=== PATIENT | female | born 1990 | race Caucasian/White ===

== ENCOUNTER 2016-12-06 13:04 | Emergency (ER) | payer SELFPAY ==
[2016-12-06 14:08] VITALS: BP 113/71
[2016-12-06] MEDS ORDERED: Acetaminophen TAB* 325 MG PO ONE (14:14)
[2016-12-06] MEDS ORDERED: Ondansetron INJ* 2 MG/ML VIAL IV ONE (14:15)
--- NOTE | 2016-12-06 16:55 | ED ---
Substance Abuse/Use - HPI Summary HPI Summary: Patient is a [facility] patient, a heroin drug user and last used suboxone 2 days ago arrives to ED with CC of feeling nauseous, chills, sweats and generalized malaise x2 days. Last used heroin 1 week ago. She states [facility] is unable to get her the suboxone she needs and she feels that she is going through withdraws. She also states she has been sick recently with URI and could be from that. She was seen at [facility] and they sent her here for workup. - History Of Current Complaint Chief Complaint: EDDetoxRequest Stated Complaint: WITHDRAWAL Time Seen by Provider: 12/06/16 14:02 Hx Obtained From: Patient Hx Last Menstrual Period: 2 months ago,very irregular per pt. ?: No Onset/Duration of Drug/ETOH Abuse: Days - 7 days ago Ingestion History: Type/Name Of Drug - heroin Overdose Characteristics: IV - heroin Timing Of Abuse: Daily, Recent Cessation For A Period Of - 1 week Severity Initially: Moderate Severity Currently: Moderate Aggravating Factor(s): Nothing Alleviating Factor(s): Medication - suboxone Associated Signs And Symptoms: Nausea, Vomiting, Cough Related Hx: Drug/Alcohol Last Used @ - 1 week ago, Possible Multi Drug Ingestion - Risk Factor(s) Completed Suicide Risk Factors: White [place] - Allergies/Home Medications Allergies/Adverse Reactions: Allergies Allergy/AdvReac Type Severity Reaction Status Date / Time Erythromycin Allergy Unknown Verified 12/06/16 13:10 Reaction Details PMH/Surg Hx/FS Hx/Imm Hx Previously Healthy: Yes Endocrine/Hematology History: Denies: Hx Diabetes, Hx Thyroid Disease Cardiovascular History: Denies: Hx Hypertension Respiratory History: Denies: Hx Asthma, Hx Chronic Obstructive Pulmonary Disease (COPD) GI History: Denies: Hx Ulcer History: Denies: Hx Renal Disease - Cancer History Cancer Type, Location and Year: skin cancer - 2007 right buttock - Surgical History Surgery Procedure, Year, and Place: 2007 - lymph nodes removed from right groin. 2007 - skin cancer removed from right buttock - Immunization History Date of Tetanus Vaccine: 10/12 Date of Influenza Vaccine: None Infectious Disease History: No Infectious Disease History: Reports: Hx of Known/Suspected MRSA, Hx Shingles - 2007 Denies: Hx Clostridium Difficile, Hx Hepatitis, Hx Human Immunodeficiency Virus (HIV), Hx Tuberculosis, Hx Known/Suspected VRE, Hx Known/Suspected VRSA, History Other Infectious Disease, Traveled Outside the [place] in Last 30 Days - Family History Known Family History: Negative: Cardiac Disease, Hypertension, Diabetes - Social History Lives: Alone Alcohol Use: None Hx Substance Use: Yes Substance Use Type: Reports: Heroin, Marijuana Substance Use Comment - Amount & Last Used: denies Hx Tobacco Use: Yes Smoking Status (MU): Heavy Every Day Tobacco Smoker Type: Cigarettes Amount Used/How Often: 1/2 PPD Length of Time of Smoking/Using Tobacco: 6 years Review of Systems Constitutional: Negative Positive: Sore Throat, Nasal Discharge Cardiovascular: Negative Positive: Cough Positive: Vomiting, Nausea Genitourinary: Negative Positive: no symptoms reported, see HPI Skin: Negative Neurological: Negative Positive: Anxious All Other Systems Reviewed And Are Negative: Yes Physical Exam Triage Information Reviewed: Yes Vital Signs On Initial Exam: Initial Vitals Temp Pulse Resp BP Pulse Ox 99.3 F 86 16 106/59 99 12/06/16 13:10 12/06/16 13:10 12/06/16 13:10 12/06/16 13:10 12/06/16 13:10 Vital Signs Reviewed: Yes Appearance: Positive: Well-Appearing, No Pain Distress, Well-Nourished Skin: Positive: Warm Eyes: Positive: EOMI, PIERCE, Conjunctiva Clear ENT: Positive: Pharynx normal, TMs normal Neck: Positive: Supple, Nontender Cardiovascular: Positive: Normal, RRR Neurological: Positive: Normal, Sensory/Motor Intact Psychiatric: Positive: Normal - [place] Coma Scale Coma Scale Total: 15 Diagnostics - Vital Signs Vital Signs Temp Pulse Resp BP Pulse Ox 12/06/16 14:03 98.9 F 76 18 113/71 99 12/06/16 13:37 98.2 F 87 16 121/71 99 12/06/16 13:10 99.3 F 86 16 106/59 99 - Laboratory Lab Statement: Any lab studies that have been ordered have been reviewed, and results considered in the medical decision making process. Course/Dx - Course Course Of Treatment: Patient left AMA after provider performed physical exam. No labs taken or medication given. - Diagnoses Differential Diagnosis/HQI/PQRI: Positive: Anxiety, Drug Abuse, Drug Withdrawal Provider Diagnoses: Nausea Discharge - Discharge Plan Condition: Stable Disposition: HOME Referrals: No Primary Care Phys,NOPCP [Primary Care Provider] -
== END 2016-12-06 15:00 | disposition home or self-care (01) ==
LOC: ED 13:04
DX: R11.0 Nausea (principal); F17.210 Nicotine dependence, cigarettes, uncomplicated; Z85.828 Personal history of other malignant neoplasm of skin
CPT/HCPCS: 99282; A9270-GY; J2405

== ENCOUNTER 2017-01-16 15:11 | Emergency (ER) | payer MEDICAID, OTHER ==
[2017-01-16 15:25] VITALS: BP 147/88
== END 2017-01-16 17:10 | disposition left against medical advice (07) ==
LOC: ED 15:11
DX: R55 Syncope and collapse (principal); Z53.21 Procedure and treatment not carried out due to patient leaving prior to being seen by health care provider

== ENCOUNTER 2017-03-17 12:49 | Emergency (ER) | payer MEDICAID, OTHER ==
[2017-03-17] MEDS ORDERED: Ibuprofen TAB* 600 MG PO ONE (13:44)
[2017-03-17] MEDS ORDERED: Cephalexin CAP* 500 MG PO ONE (13:44)
[2017-03-17] MEDS ORDERED: Lidocaine 2.5%/Prilocain 2.5%* 5 GM TUBE TOPICAL ONE (13:44)
[2017-03-17] MEDS ORDERED: Sulfamethox/Trimethoprim DS 800/160* TAB PO ONE (13:44)
[2017-03-17 17:48] VITALS: BP 122/70
--- NOTE | 2017-03-17 18:11 | PN ---
Progress Note - Progress Note Note: I&D performed by Nenita SRIVASTAVA of left antecubital fossa Use local 1% lidocaine and anesthetized area lengthen opening already present at center of antecubital fossa and placed another laceration in center of abscess that did not track from other opening with minimal amount of draining present Packed with plain packing Placed an john wrap around area Told to return to ED or UC to have packing removed in 2 days
--- NOTE | 2017-03-17 23:11 | ED ---
Patsy Andrews Alok, scribed for Demarcus Gage MD on 03/17/17 at 1406 . Skin Complaint - HPI Summary HPI Summary: Went to room at 1350 - No pt is room, greeted mother. Revisited patient at 1645 - Pt presents to the ED with left arm pain at the antecubital described as stabbing, burning pain with purulent and blood drainage. Pt states that she injected her arm with heroine 9 days ago and her arm has been hurting for the last 8 days. Pt also notes a subjective fever and diaphoresis. Pt is actively trying to get into a rehabilitation center in [place] and has been to [facility] before. - History of Current Complaint Chief Complaint: EDGeneral Stated Complaint: ABSESS LT ARM Hx Obtained From: Patient Hx Last Menstrual Period: 2 months ago,very irregular per pt. Onset/Duration: Started Days Ago, Still Present Skin Exposure Onset/Duration: Days Ago Timing: Constant Onset Severity: Moderate Current Severity: Moderate Pain Intensity: 6 Pain Scale Used: 0-10 Numeric Skin Location: Arm Character: Pruritus, Pain Aggravating Symptom(s): Other: - Heroine injection Alleviating Symptom(s): Nothing Associated Signs & Symptoms: Diaphoresis, Fever - Subjective, Drainage Related History: Other: - Pain at heroine injection site. - Allergy/Home Medications Allergies/Adverse Reactions: Allergies Allergy/AdvReac Type Severity Reaction Status Date / Time Erythromycin Allergy Unknown Verified 12/06/16 13:10 Reaction Details PMH/Surg Hx/FS Hx/Imm Hx Endocrine/Hematology History: Denies: Hx Diabetes, Hx Thyroid Disease Cardiovascular History: Denies: Hx Hypertension Respiratory History: Denies: Hx Asthma, Hx Chronic Obstructive Pulmonary Disease (COPD) GI History: Denies: Hx Ulcer History: Denies: Hx Renal Disease - Cancer History Cancer Type, Location and Year: skin cancer - 2007 right buttock - Surgical History Surgery Procedure, Year, and Place: 2007 - lymph nodes removed from right groin. 2007 - skin cancer removed from right buttock - Immunization History Date of Tetanus Vaccine: 10/12 Date of Influenza Vaccine: None Infectious Disease History: No Infectious Disease History: Reports: Hx of Known/Suspected MRSA, Hx Shingles - 2007 Denies: Hx Clostridium Difficile, Hx Hepatitis, Hx Human Immunodeficiency Virus (HIV), Hx Tuberculosis, Hx Known/Suspected VRE, Hx Known/Suspected VRSA, History Other Infectious Disease, Traveled Outside the [place] in Last 30 Days - Family History Known Family History: Negative: Cardiac Disease, Hypertension, Diabetes - Social History Occupation: Unemployed Lives: With Family Alcohol Use: None Hx Substance Use: Yes Substance Use Type: Reports: Heroin, Marijuana Substance Use Comment - Amount & Last Used: denies Hx Tobacco Use: Yes Smoking Status (MU): Heavy Every Day Tobacco Smoker Type: Cigarettes Amount Used/How Often: 1/2 PPD Length of Time of Smoking/Using Tobacco: 6 years Review of Systems Positive: Fever - subjective, Skin Diaphoresis. Negative: Chills Negative: Erythema Negative: Sore Throat Negative: Chest Pain Negative: Shortness Of Breath, Cough Negative: Abdominal Pain, Vomiting, Nausea Negative: dysuria, hematuria Negative: Myalgia, Edema Positive: Other - pain with purulent drainage left anticubital Neurological: Other - Negative: Dizziness All Other Systems Reviewed And Are Negative: Yes Physical Exam - Summary Physical Exam Summary: Constitutional: Well-developed, Well-nourished, Alert. (-) Distressed Skin: 15 cm left antecubital fossa to mid-humerus puncture would with surrounding induration, no lymphadenopathy. Small induration lump with no erythema on dorsum of hand with no discoloration at injection site HENT: Normocephalic; Atraumatic Eyes: Conjunctiva normal Neck: Musculoskeletal ROM normal neck. (-) JVD, (-) Stridor, (-) Tracheal deviation Cardio: Rhythm regular, rate normal, Heart sounds normal; Intact distal pulses; The pedal pulses are 2+ and symmetric. Radial pulses are 2+ and symmetric. (-) Murmur Pulmonary/Chest wall: Effort normal. (-) Respiratory distress, (-) Wheezes, (-) Rales Abd: Soft, (-) Tenderness, (-) Distension, (-) Guarding, (-) Rebound Musculoskeletal: (-) Edema Lymph: (-) Cervical adenopathy Neuro: Alert, Oriented x3 Psych: Mood and affect Normal Triage Information Reviewed: Yes Vital Signs On Initial Exam: Initial Vitals Temp Pulse Resp BP Pulse Ox 97.1 F 78 16 115/55 98 03/17/17 13:18 03/17/17 13:18 03/17/17 13:18 03/17/17 13:18 03/17/17 13:18 Vital Signs Reviewed: Yes - [place] Coma Scale Coma Scale Total: 15 Diagnostics - Vital Signs Vital Signs Temp Pulse Resp BP Pulse Ox 03/17/17 13:30 66 99 03/17/17 13:22 97.8 F 74 20 115/55 98 03/17/17 13:18 97.1 F 78 16 115/55 98 - Laboratory Lab Statement: Any lab studies that have been ordered have been reviewed, and results considered in the medical decision making process. Course/Dx - Diagnoses Provider Diagnoses: Heroin abuse, Arm abscess, Left arm cellulitis Discharge - Discharge Plan Condition: Stable Disposition: HOME Prescriptions: Cephalexin CAP* [Keflex CAP*] 500 mg PO QID #40 cap Ibuprofen TAB* [Motrin TAB* 600 MG] 600 mg PO Q6H PRN #40 tab PRN Reason: Pain - Moderate To Severe Sulfamethox/Trimethoprim DS* [Bactrim DS 800/160 TAB*] 1 tab PO BID #20 tab Patient Education Materials: Abscess (ED), Cellulitis (ED) Forms: *Gen. Provider Communication Referrals: No Primary Care Phys,NOPCP [Primary Care Provider] - [facility] [Outside] The documentation as recorded by the Patsy quinones Alok accurately reflects the service I personally performed and the decisions made by , Demarcus Gage MD.
== END 2017-03-17 17:49 | disposition home or self-care (01) ==
LOC: ED 12:49
DX: L02.414 Cutaneous abscess of left upper limb (principal); L03.114 Cellulitis of left upper limb; F11.10 Opioid abuse, uncomplicated; R50.9 Fever, unspecified; F17.210 Nicotine dependence, cigarettes, uncomplicated
CPT/HCPCS: 99282; A9270-GY

== ENCOUNTER 2017-03-19 09:02 | Emergency (ER) | payer OTHER ==
[2017-03-19 09:09] VITALS: BP 106/66
--- NOTE | 2017-03-19 12:55 | UC ---
Patsy Andrews Alok, scribed for Isabella Matos DO on 03/19/17 at 0918 . HPI Wound/Suture Re-check - HPI Summary HPI Summary: 26F presents to the [facility] with two abscesses at the left antecubital fossa. Pt states that she was seen at the ED 2 days ago and had one of the abscesses drained while the other had difficulty draining. Pt was discharged with rx for ibuprofen, cephalexin, and sulfamethox. Pt states that her abscess started 10 days ago caused by a heroin injection 11 days ago. Pt notes pruritus and pain at abscess. Pt notes a subjective fever. Pt denies chills, diaphoresis, nausea, ear pain, sore throat, cough, or abd pain. PMHx includes h/o MRSA and Skin CA. Pt smokes tobacco. Pt can not move the elbow joint at all. - History Of Current Complaint Chief Complaint: UCWounds Stated Complaint: SOFT TISSUE COMPLAINT Time Seen by Provider: 03/19/17 09:08 Hx Obtained From: Patient Onset/Duration: Lasting Days, Still Present Surgical Site: left antecubital Severity: Moderate Pain Intensity: 8 Pain Scale Used: 0-10 Numeric - Allergies/Home Medications Allergies/Adverse Reactions: Allergies Allergy/AdvReac Type Severity Reaction Status Date / Time Erythromycin Allergy Unknown Verified 03/19/17 09:09 Reaction Details PMH/Surg Hx/FS Hx/Imm Hx - Additional Past Medical History Additional PMH: opiate addiction - Surgical History Surgical History: Yes Surgery Procedure, Year, and Place: 2007 - lymph nodes removed from right groin. 2007 - skin cancer removed from right buttock - Family History Known Family History: Negative: Cardiac Disease, Hypertension, Diabetes - Social History Lives: With Family Alcohol Use: None Substance Use Type: Heroin, Marijuana Substance Use Comment - Amount & Last Used: denies Smoking Status (MU): Heavy Every Day Tobacco Smoker Type: Cigarettes Amount Used/How Often: 1 PPD Length of Time of Smoking/Using Tobacco: 6 years Household Exposure Type: Cigarettes Cessation Counseling: Patient Advised to Stop Review of Systems Constitutional: Negative Skin: Other - Abscess left arm ENT: Negative Respiratory: Negative Gastrointestinal: Negative All Other Systems Reviewed And Are Negative: Yes Physical Exam Triage Information Reviewed: Yes Appearance: Well-Appearing, Well-Nourished, Pain Distress - mild to moderate, severe duing unpacking/repacking of wound Vital Signs: Initial Vital Signs Temp 98.7 F 03/19/17 09:04 Pulse 59 03/19/17 09:04 Resp 16 03/19/17 09:04 BP 106/66 03/19/17 09:04 Pulse Ox 99 03/19/17 09:04 Vital Signs Reviewed: Yes Eyes: Positive: Conjunctiva Clear. Negative: Discharge ENT: Positive: Hearing grossly normal. Negative: Muffled/hoarse voice Neck: Positive: Supple, Nontender Respiratory: Positive: Lungs clear, Normal breath sounds, No respiratory distress, No accessory muscle use Cardiovascular: Positive: RRR, No Murmur Musculoskeletal Exam: Normal Musculoskeletal: Positive: ROM Limited @, Edema @, Other: - Left elbow is wrapped in compression dressing bandage. Removal of bandage reveals tender, swollen, red, erythematous elbow. Joint circumferential tenderness, swelling, redness, calor. Left hand notable for nontender edema. Skin notable for numerous injection site. Neurological: Positive: Alert, Muscle Tone Normal Psychological Exam: Normal Psychological: Positive: Age Appropriate Behavior Skin: Positive: Other - Left elbow is wrapped in compression dressing bandage. Removal of bandage reveals tender, swollen, red, erythematous elbow. Joint circumferential tenderness, swelling, redness, calor. 2 incision cites antecubital fossa. More distal wound packing continues to drain pus. Would culture obtained. Proximal wound is centralized over indurated area no fluctuance perceived on palpation. Left hand notable for nontender edema. Skin notable for numerous injection site. Course/Dx - Course Course Of Treatment: The patient has been encouraged to quit smoking. Explained concern for joint infection to both mother and pt. - Differential Dx - Laceration/Wound Differential Diagnoses: Abscess, Cellulitis, Healing Wound, Joint Infection Provider Diagnoses: abscess, swollen joint -r/o septic joint - Physician Notification/Consults Discussed Patient Care With: Dr. Bueno (Orthopedics) - Recommends blood work done Time Discussed With Above Provider: 09:20 Discharge - Discharge Plan Condition: Stable Disposition: AGAINST MEDICAL ADVICE Referrals: No Primary Care Phys,NOPCP [Primary Care Provider] - The documentation as recorded by the Patsy quinones Alok accurately reflects the service I personally performed and the decisions made by , Isabella Matos DO.
--- NOTE | 2017-03-19 15:59 | UC ---
Progress - Progress Note Progress Note: Dr. Matos reported result to patient. Patient currently in Ed for higher level of care evaluation of would--
== END 2017-03-19 10:07 | disposition left against medical advice (07) ==
LOC: UCEAST 09:02
DX: L02.414 Cutaneous abscess of left upper limb (principal); M25.422 Effusion, left elbow; Z88.1 Allergy status to other antibiotic agents; F11.90 Opioid use, unspecified, uncomplicated; F12.90 Cannabis use, unspecified, uncomplicated; F17.210 Nicotine dependence, cigarettes, uncomplicated
CPT/HCPCS: 87070; 87205; 87640; 87641; 99212; G0463

== ENCOUNTER 2017-03-19 13:46 | Emergency (ER) | payer OTHER ==
--- NOTE | 2017-03-19 15:38 | RAD ---
Indication: Left elbow pain. 2 views of left elbow demonstrates no fracture. No other bone or joint abnormality is identified. IMPRESSION: No fracture of left elbow is noted.
[2017-03-19 16:31] LABS: Albumin 3.8 g/dL (3.2-5.2); BUN/Creatinine Ratio 18.6 (8-20); C Reactive Protein 60.77 mg/L (< 5.00); Calcium 9.4 mg/dL (8.6-10.3); EGFR African American 132.2 (>60); EGFR Non-African American 102.8 (>60); Globulin 3.2 g/dL (2-4); Potassium 3.4 mmol/L (3.5-5.0); Total Bilirubin 0.3 mg/dL (0.2-1.0)
[2017-03-19 16:38] LABS: Hematocrit 41 % (35-47); Hemoglobin 13.5 g/dl (12.0-16.0); Mean Corpuscular HGB Conc 33 g/dl (31-36); Mean Corpuscular Hemoglobin 28 pg (27-31); Mean Corpuscular Volume 85 fL (80-97); Mean Platelet Volume 7 um3 (7.4-10.4); Red Blood Count 4.77 10^6/ul (4.0-5.4); Red Cell Distribution Width 13 % (10.5-15); White Blood Count 8.2 10^3/ul (3.5-10.8)
[2017-03-19] MEDS ORDERED: Ketorolac INJ* 30 MG/ML 1 ML VIAL IV PUSH ONE (16:53)
--- NOTE | 2017-03-19 17:08 | ED ---
Upper Extremity Pain - HPI Summary HPI Summary: Pt here w/ Lt elbow pain x 11 days. This started 1 day after injecting heroine into AC fossa of Lt arm. She was seen here in ED on 03/[address] Gage w/ an abscess in injection site. This was reported to be draining purulent and bloody d/c however it may have been further opened and packed? (note is not clear but pt reports this). Pt d/c'd w/ bactrim and keflex as she has h/o MRSA. Cx taken this day reveals Staph aureus and MRSA (results here today). She has been taking keflex and bactrim past 2 days as directed however reports a new abscess formed in the same area and is painful. She is unable to bend or straighten her elbow from a 90 degree position. This entire area is red, swollen and tender to touch as well as move. Her hand is also red and swollen here. Denies fever, chills, N/V however note from 03/17 indicates she had subjective fever and diaphoresis that day. Was seen at today for packing change and when it was observed her infection is worse, she was sent here for further investigation for possible septic joint. She further notes a bump on her dorsal Rt hand which has been progressing over time now and is quite painful today. This is an "old injection site... from a few days ago" - hurts to move fingers on the Rt hand. She is unsure of her tetanus status. - History of Current Complaint Chief Complaint: EDRashSkinAbscess Stated Complaint: LT ARM INFLAMMATION Time Seen by Provider: 03/19/17 15:40 Hx Obtained From: Patient, Family/Talent Acquisition Director - mom Hx Last Menstrual Period: 12/2016 - Allergies/Home Medications Allergies/Adverse Reactions: Allergies Allergy/AdvReac Type Severity Reaction Status Date / Time Erythromycin Allergy Unknown Verified 03/19/17 17:43 Reaction Details PMH/Surg Hx/FS Hx/Imm Hx Previously Healthy: No - Lt AC abscess, heroine use Endocrine/Hematology History: Denies: Hx Anticoagulant Therapy, Hx Blood Disorders, Hx Diabetes, Hx Thyroid Disease, Autoimmune Disease Cardiovascular History: Denies: Hx Hypertension Respiratory History: Denies: Hx Asthma, Hx Chronic Obstructive Pulmonary Disease (COPD) GI History: Denies: Hx Ulcer History: Denies: Hx Renal Disease - Cancer History Cancer Type, Location and Year: skin cancer - 2007 right buttock - Surgical History Surgery Procedure, Year, and Place: 2007 - lymph nodes removed from right groin. 2007 - skin cancer removed from right buttock - Immunization History Date of Tetanus Vaccine: 10/12 Date of Influenza Vaccine: None Infectious Disease History: No Infectious Disease History: Reports: Hx of Known/Suspected MRSA, Hx Shingles - 2007 Denies: Hx Clostridium Difficile, Hx Hepatitis, Hx Human Immunodeficiency Virus (HIV), Hx Tuberculosis, Hx Known/Suspected VRE, Hx Known/Suspected VRSA, History Other Infectious Disease, Traveled Outside the [place] in Last 30 Days - Family History Known Family History: Negative: Cardiac Disease, Hypertension, Diabetes - Social History Alcohol Use: None Hx Substance Use: Yes Substance Use Type: Reports: Heroin - current use, Marijuana Hx Tobacco Use: Yes Smoking Status (MU): Current Every Day Smoker Type: Cigarettes Amount Used/How Often: 1 PPD Length of Time of Smoking/Using Tobacco: 6 years Review of Systems Constitutional: Negative Negative: Fever, Chills Negative: Chest Pain Negative: Shortness Of Breath Negative: Vomiting, Nausea Positive: no symptoms reported Musculoskeletal: Other - see HPI Skin: Other - see HPI Negative: Weakness, Paresthesia, Numbness Positive: Anxious All Other Systems Reviewed And Are Negative: Yes Physical Exam Triage Information Reviewed: Yes Vital Signs On Initial Exam: Initial Vitals Temp Pulse Resp BP Pulse Ox 97.0 F 82 16 113/85 100 03/19/17 13:47 03/19/17 13:47 03/19/17 13:47 03/19/17 13:47 03/19/17 13:47 Vital Signs Reviewed: Yes Appearance: Positive: Well-Appearing, Pain Distress Skin: Positive: Warm - indurated erythema circumventing the distal biceps and forearm of the Lt UE - #1 wound (more distal) w/ purulent soaked packing; #2 wound w/ linear scabbing, no drainage and no packing - no fluctuance; erythema extends into forearm and hand w/ mild edema; raised tender nickel sized swelling over Rt dorsal hand - overlying linear scab here - no erythema, no fever to touch, no drainage Head/Face: Positive: Normal Head/Face Inspection Eyes: Positive: EOMI ENT: Positive: Hearing grossly normal Respiratory/Lung Sounds: Positive: Breath Sounds Present Cardiovascular: Positive: Pulses are Symmetrical in both Upper and Lower Extremities Musculoskeletal: Positive: Pain @ - Lt elbow TTP; olecranon fossa are prominent and w/o vidya bogginess however this area is TTP; pt can move wrist and finger here but reports pain - she is unable to move elbow from 90 degrees of flexion d /t pain - moving shoulder some here; she is able to move fingers on Rt hand but reports pain w/ doing this Neurological: Positive: Normal, Sensory/Motor Intact, Alert, Oriented to Person Place, Time, CN Intact II-III Psychiatric: Positive: Anxious Diagnostics - Vital Signs Vital Signs Temp Pulse Resp BP Pulse Ox 03/19/17 15:38 97.0 F 82 16 113/85 99 03/19/17 13:47 97.0 F 82 16 113/85 100 - Laboratory Lab Results: Lab Results 03/19/17 03/19/17 03/19/17 Range/Units 16:00 16:00 16:00 WBC 8.2 (3.5-10.8) 10^3/ul RBC 4.77 (4.0-5.4) 10^6/ul Hgb 13.5 (12.0-16.0) g/dl Hct 41 (35-47) % MCV 85 (80-97) fL MCH 28 (27-31) pg MCHC 33 (31-36) g/dl RDW 13 (10.5-15) % Plt Count 482 H (150-450) 10^3/ul MPV 7 L (7.4-10.4) um3 Neut % (Auto) 45.0 (38-83) % Lymph % (Auto) 41.0 (25-47) % Emanuel % (Auto) 5.6 (1-9) % Eos % (Auto) 7.2 H (0-6) % Baso % (Auto) 1.2 (0-2) % Absolute Neuts (auto) 3.7 (1.5-7.7) 10^3/ul Absolute Lymphs (auto) 3.4 (1.0-4.8) 10^3/ul Absolute Monos (auto) 0.5 (0-0.8) 10^3/ul Absolute Eos (auto) 0.6 (0-0.6) 10^3/ul Absolute Basos (auto) 0.1 (0-0.2) 10^3/ul Absolute Nucleated RBC 0 10^3/ul Nucleated RBC % 0 Sodium 136 (133-145) mmol/L Potassium 3.4 L (3.5-5.0) mmol/L Chloride 106 (101-111) mmol/L Carbon Dioxide 21 L (22-32) mmol/L Anion Gap 9 (2-11) mmol/L BUN 13 (6-24) mg/dL Creatinine 0.70 (0.51-0.95) mg/dL Est GFR ( Amer) 132.2 (>60) Est GFR (Non-Af Amer) 102.8 (>60) BUN/Creatinine Ratio 18.6 (8-20) Glucose 97 (70-100) mg/dL Lactic Acid 0.8 (0.5-2.0) mmol/L Calcium 9.4 (8.6-10.3) mg/dL Total Bilirubin 0.30 (0.2-1.0) mg/dL AST 14 (13-39) U/L ALT 9 (7-52) U/L Alkaline Phosphatase 81 (34-104) U/L C-Reactive Protein 60.77 H (< 5.00) mg/L Total Protein 7.0 (6.4-8.9) g/dL Albumin 3.8 (3.2-5.2) g/dL Globulin 3.2 (2-4) g/dL Albumin/Globulin Ratio 1.2 (1-3) Result Diagrams: 03/19/17 16:00 03/19/17 16:00 Lab Statement: Any lab studies that have been ordered have been reviewed, and results considered in the medical decision making process. Course/Dx - Course Course Of Treatment: Pt here w/ 11 days h/o abscess/cellulitis to Lt UE s/p injecting heroine here. One of the wounds has been draining and has packing in place. Was initially seen on 03/17 and started on anbx which appear to be appropriate based on cx results. She was seen again today at w/ worsening of pain, swelling and unable to move Rt elbow despite medications. Labs are WNL except for CRP and vitals are WNL. Advised pt to be NPO - last ate at 17:00. Spoke w/ Dr. Wilkes who requests MRI of the area and he will consult once he's free to do so. Discussed course of care with pt and pt's mom. Signed out to Pa Delgado PA-C @ 17:30. - Diagnoses Provider Diagnoses: Infection of injection site - Physician Notifications Discussed Care of Patient With: Dr. Wilkes Discharge - Discharge Plan Condition: Stable Disposition: OTHER Discharge Disposition Comment: Signed out to Pa Delgado PA-C
[2017-03-19] MEDS ORDERED: Vancomycin(*) 1,000 MG in NS 0.9% 250 ML* 250 ML IVPB ONE (19:44)
[2017-03-19] MEDS ORDERED: Tetan/Diph/Pertus SYR(Tdap)* 0.5 ML SYR(BOOSTRIX) use SYR IM ONE (19:44)
--- NOTE | 2017-03-19 21:14 | RAD ---
Indication: Septic joint versus deep tissue abscess Image sequences: Axial T1, T2 fat sat, sagittal T1, T2 fat sat, coronal T1, T2 fat sat and STIR images of the left elbow was obtained. There is subcutaneous edema most prominent in the radial aspect of the elbow. There may be a thrombosed venous structure noted. Minimal amount of fluid is noted in the elbow joint which is felt to represent physiologic fluid. There may be some minimal edema in the flexor carpi radialis muscle. No ligamentous injury is noted. No drainable fluid collections are noted. IMPRESSION: SUBCUTANEOUS EDEMA IN THE RADIAL ASPECT OF THE SOFT TISSUES OF THE ELBOW IN THE SUBCUTANEOUS TISSUE. THERE MAY BE SOME MINIMAL EDEMA IN THE FLEXOR CARPI RADIALIS MUSCLE HOWEVER NO EVIDENCE OF ANY OSTEOMYELITIS OR DRAINABLE FLUID COLLECTIONS ARE NOTED. TRACE AMOUNT OF JOINT EFFUSION IS NOTED LIKELY PHYSIOLOGIC.
--- NOTE | 2017-03-19 21:51 | PN ---
Progress Note - Progress Note Date of Service: 03/19/17 Note: Patient care assumed from Sharmila Myers PA-C. Patient awaiting results from a left upper extremity MRI as per Dr. Wilkes with orthopedics. MRI results do not show any infectious process, therefore she will be discharged home on the antibiotics she has already begun with instructions to use ibuprofen for pain. She should follow-up with her PCP as directed.
[2017-03-19 23:39] VITALS: BP 114/55
--- NOTE | 2017-03-21 22:38 | CONS ---
CONSULTATION NOTE: DATE OF CONSULTATION: 03/19/17 SETTING: Emergency department. REASON FOR CONSULTATION: Left elbow infection. HISTORY OF PRESENT ILLNESS: The patient is a 26-year-old woman, a known IV drug abuser, who presents for a left painful elbow to the emergency department today, having also been previously seen in the emergency department 2 days ago on March 17. With regards to the patient's complaint, her history begins approximately 11 days ago, when she states she injected a drug about the left antecubital fossa. The patient states that 10 days ago, on the , she started developing left elbow area pain. The patient described some increased pain as well as subjective fevers and some increased diaphoresis. On March 17, she was seen in the emergency department at [facility]. The provider's note describes induration from the left antecubital fossa to the mid upper arm. The patient was noted at that clinic visit to be afebrile. No labs were obtained. While it is not in the clinic notes, the patient describes having lancing of 2 separate areas of significant induration about the left antecubital fossa. She states that packing was placed into one of these after some pus had been expressed. The other lancing did not produce any pus or fluid. The patient was sent home from the emergency department on Keflex, Bactrim, and Motrin. The patient has a history of MRSA infections, that is why Bactrim was included. The patient was also noted during that ER visit to have a small lump about the dorsum of the left hand. The patient presented to emergent care this morning at approximately 9 a.m. The urgent care physician called me as I was manager presentation for my group. I was in clinic. The urgent care physician described increasing left elbow pain and the patient's inability or lack of desire to move the left elbow because of pain. Given that story, I was concerned for a left elbow joint infection. Therefore, I instructed the urgent care physician to order inflammatory labs, blood work, and to transfer the patient to the emergency department and make sure the patient was not eating or drinking. Instead of going directly to the emergency department, the patient took most of the day to present there. I was notified in the late afternoon that she had presented to the emergency department. ER note describes her being seen by a provider at 3:40 p.m. the same day. The patient did not give a good explanation as to where she was in the intervening hours. The patient complains of pain in the left elbow, acknowledges many injection site scars about her bilateral upper extremities, track retana. She describes some subjective fevers. She states she has been taking her antibiotics. She provided the above-mentioned history from the March 17 emergency department visit, abscess decompression with packing placement that was corroborated by other ER physicians who had spoken to her. Packing remained in place. The patient claims that she has not used IV drugs since approximately March 08. The patient does describe subjective fevers at home. Left elbow pain. Some minimal discomfort about the left hand also described. PAST MEDICAL HISTORY: Opiate addiction. PAST SURGICAL HISTORY: 1. Excision of lymph node, right groin, 2007. 2. 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 MEDICATIONS: Currently on: 1. Keflex. 2. Bactrim. 3. Motrin p.r.n. ALLERGIES: ERYTHROMYCIN. SOCIAL HISTORY: The patient is a tobacco smoker, with a 6-pack year history of smoking. She uses heroin and marijuana. The patient has considered going to a rehabilitation facility in [place], [place] . REVIEW OF SYSTEMS: Subjective fever. Increased sweating. No chills. Some mild left hand pain, significant left elbow pain. PHYSICAL EXAMINATION: Afebrile, vital signs stable. Her vitals at 3:38 on March 19 were temperature 97.0 degrees Fahrenheit, heart rate 82, blood pressure 113/85, O2 sat 99% on room air, and respiratory rate 16. No acute distress, alert and oriented x3, appropriate mood and affect. The patient was pretty light-hearted and referred to possibly wanting to strike me, in a joking fashion, when I removed the packing from her elbow and before that when I was removing her dressing. Appropriate dress and hygiene, although the dress was a little bit risque. Non-antalgic gait, well-coordinated right upper and bilateral lower extremities. The patient has multiple track retana throughout the bilateral upper extremities. Left upper extremity exam reveals no axillary lymphadenopathy. There is no erythematous streaking of the upper arm or the forearm. No tenderness to palpation whatsoever of the upper arm or axilla. Left elbow exam demonstrates some mild soft tissue swelling about the left elbow. The patient has only minimal induration volarly. There is some clear packing placed just distal to the flexor crease in the antecubital fossa anteriorly. I removed this packing after wetting it to ease the discomfort of removal. There appeared to be a very superficial small cavity with no pus draining out of it immediately. Once the pus was removed, there was a nice open hole, perhaps 5 to 10 by 5 to 10 mm in size. No significant erythema about the elbow. No significant warmth of the elbow. I attempted passive range of motion of the elbow. The patient would not move from approximately 85 degrees of flexion of the elbow. Not even 5 degrees. There appeared to be a significant volitional component of this lack of passive range of motion. The patient was neurovascularly intact distally. The patient had some soft tissue swelling, but no erythema, tenderness at a track shannan on the dorsum of the left hand. LABORATORY VALUES: On 03/19/17, lab values obtained at 4 p.m. demonstrates a white blood cell count of 8.2, CRP of 60.77. Cultures taken in urgent care came back being MRSA positive from the wound that had packing in it. IMAGING: MRI of the left elbow was reviewed by me, its report as well as images. It demonstrates some minimal soft tissue swelling volarly. No fluid in the elbow joint present. No joint effusion whatsoever, although radiologist read that there might be a trace physiologic amount of joint effusion. Radiology notes some mild edema in the flexor carpi radialis. Elbow x-rays, left, were also obtained and demonstrate no fracture or foreign body, metallic. ASSESSMENT: 1. Small abscess, left antecubital fossa, status post decompression and packing 2 days ago on March 17. 2. Left elbow antecubital fossa cellulitis. 3. Drug addict, heroin, marijuana. PLAN: 1. Discussed, the patient's history, exam, and imaging findings with the emergency department personnel. I was certainly concerned about a possible elbow joint infection given the patient's clinical exam. In my experience as well as in the literature, the most accurate gauge of a joint infection is pain with passive range of motion of a joint. While I thought that there was a significant volitional component to the patient's lack of any motion of the elbow with passive range of motion, even 5 degrees, I did not feel like I could sufficiently evaluate for infection until the advanced imaging could be obtained. 2. Based on no effusion of the elbow joint along with the patient being afebrile with a normal white blood cell count as well as her clearly pain medication-seeking behavior and poor followup between urgent care and the emergency room, I think it is incredibly unlikely that the patient has a joint infection. I do not make that conclusion lightly as a joint infection is a surgical emergency. The patient's lack of passive or active range of motion of exam was not believable; I believe that there was a significant volitional component to it. 3. So too, the MRI was unable to visualize any fluid collection, new, that might require a new irrigation and debridement or lancing, decompression in the emergency department or the operating room. 4. I recommended, since the patient had an IV placed in the emergency room, that she get one dose of vancomycin 1 g as she is growing MRSA from that wound. 5. Recommend to continue oral antibiotics, Keflex and Bactrim. Recommend Motrin p.r.n. pain. I strongly discouraged the ED staff from providing the patient with any oral narcotics. 6. I recommend that the patient follow up with her primary care physician and seriously consider obtaining some rehabilitation for her drug habit. 7. The ED staff will encourage the patient to return to the emergency department if her pain increases or if her elbow becomes more painful or indurated. [id number]/[facility] #: [id number] DIANDRA
== END 2017-03-19 23:10 | disposition home or self-care (01) ==
LOC: ED 13:46
DX: L02.414 Cutaneous abscess of left upper limb (principal); F41.9 Anxiety disorder, unspecified; Z86.14 Personal history of Methicillin resistant Staphylococcus aureus infection; Z87.898 Personal history of other specified conditions; F17.210 Nicotine dependence, cigarettes, uncomplicated
CPT/HCPCS: 36415; 80053; 83605; 85025; 86140; 90471; 90715; 96374; 99283; J1885; J3370